=== PATIENT | female | born 1985 | race Caucasian/White ===

== ENCOUNTER 2020-10-25 21:34 | Emergency (ER) | payer BC ==
[~2020-10-25] VITALS: Ht 167.6 cm; Wt 57.6 kg
--- NOTE | 2020-10-25 21:47 | NUR ---
CALLED FOR TRIAGE NO ANSWER
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
[2020-10-25] MEDS ORDERED: KETOROLAC TROMETHAMINE INJ 30 MG/ML VIAL ONE (22:18)
[2020-10-25] MEDS ORDERED: CYCLOBENZAPRINE 10 MG TABLET ONE (22:18)
[2020-10-25] MEDS ORDERED: CYCLOBENZAPRINE 10 MG TABLET PO ONE (22:30)
[2020-10-25] MEDS ORDERED: KETOROLAC TROMETHAMINE INJ 30 MG/ML VIAL IM ONE (22:30)
--- NOTE | 2020-10-25 22:59 | NUR ---
RETURNED FROM RADIOLOGY
[2020-10-25] MEDS ORDERED: CYCL5TAB PO (23:13)
--- NOTE | 2020-10-25 23:29 | NUR ---
Patient discharged to home in stable condition. Written and verbal after care instructions given. Patient verbalizes understanding of instruction. Pt ambulatory with a steady gait
[2020-10-25 23:37] VITALS: BP 111/83
== END 2020-10-25 23:29 | disposition home or self-care (01) ==
LOC: ER 21:39
DX: S13.4XXA Sprain of ligaments of cervical spine, initial encounter (principal); M54.81 Occipital neuralgia; Z98.890 Other specified postprocedural states; Z88.6 Allergy status to analgesic agent; Z88.1 Allergy status to other antibiotic agents; Z91.048 Other nonmedicinal substance allergy status; V49.59XA Passenger injured in collision with other motor vehicles in traffic accident, initial encounter; Y93.89 Activity, other specified; Y92.413 State road as the place of occurrence of the external cause; Y99.8 Other external cause status
CPT/HCPCS: 70450; 71045; 72125; 96372; 99285; J1885